=== PATIENT | female | born 1945 | race Caucasian/White ===

== ENCOUNTER 2019-08-15 08:55 | Emergency (ER) | payer MEDICARE, MEDICAID ==
[~2019-08-15] VITALS: Ht 172.7 cm; Wt 100.0 kg
[~2019-08-15 08:55] MED LIST: ALBU8.5H8 IH; ARIP10TA17 PO; ASPI-611 PO; BUPR300T6 PO; CHOL100034 PO; DOCU100C40 PO; ESTR1TAB28 PO; EXEN5PEN2 SQ; HYDR-3972 PO; LISI40TA4 PO; MORP60TA77 PO; NATURAL CALM PO; OMEP-50 PO; OSC500T PO; SIMV80TA89 PO; TORS20TA3 PO
[2019-08-15] MEDS ORDERED: normal saline 1000ML IV soln IV ONE (09:15)
[2019-08-15 09:40] LABS: BASOPHILS # (AUTO) 0.1 X10'3 (0-0.2); BASOPHILS % (AUTO) 0.5 % (0-1); EOSINOPHILS % (AUTO) 0.1 % (0-6); HEMATOCRIT 43.7 % (35.0-45.0); HEMOGLOBIN 15.2 g/dl (12.0-16.0); LYMPHOCYTES # (AUTO) 1.3 X10'3 (1.1-4.8); LYMPHOCYTES % (AUTO) 12.1 % (21-51); MEAN CORPUSCULAR HEMOGLOBIN 34.2 PG (27.0-31.0); MEAN CORPUSCULAR HGB CONC 34.8 g/dL (33.0-36.5); MEAN CORPUSCULAR VOLUME 98.2 FL (78-98); MEAN PLATELET VOLUME 9.2 FL (7.4-10.4); MONOCYTES # (AUTO) 1.2 X10'3 (0-0.9); MONOCYTES % (AUTO) 11.4 % (2-12); NEUTROPHILS # (AUTO) 7.9 X10'3 (1.8-7.7); NEUTROPHILS % (AUTO) 75.9 % (42-75); PLATELET COUNT 206 X10'3 (140-440); RED BLOOD COUNT 4.45 X10'6 (4.20-5.60); RED CELL DISTRIBUTION WIDTH 12.8 % (11.5-14.5); WHITE BLOOD COUNT 10.4 X10'3 (4.5-11.0)
[2019-08-15 10:01] LABS: ALANINE AMINOTRANSFERASE 16 U/L (12-78); ALBUMIN 3.2 G/DL (3.4-5.0); ALBUMIN/GLOBULIN RATIO 0.7 (1.1-1.5); ALKALINE PHOSPHATASE 100 IU/L (46-116); ANION GAP 11 (8-16); ASPARTATE AMINO TRANSFERASE 23 U/L (10-37); BILIRUBIN,TOTAL 0.9 MG/DL (0.1-1.0); BLOOD UREA NITROGEN 30 MG/DL (7-18); BUN/CREATININE RATIO 19.6 (6.6-38.0); CALCIUM 9.5 MG/DL (8.5-10.1); CHLORIDE 97 MMOL/L (99-107); CREATININE 1.53 MG/DL (0.40-0.90); GLUCOSE 294 MG/DL (70-104); MAGNESIUM 2.1 MG/DL (1.5-2.4); POTASSIUM 3.8 MMOL/L (3.5-5.1); SODIUM 136 MMOL/L (135-145); TOTAL CARBON DIOXIDE 28.1 MMOL/L (24-32); TOTAL PROTEIN 7.9 G/DL (6.4-8.2); eGFR 33 ML/MIN
[2019-08-15] MEDS ORDERED: DOXYCYCLINE 100MG CAPSULE PO STA (10:06)
[2019-08-15] MEDS ORDERED: DOXY100C2 PO (10:08)
[2019-08-15 11:09] VITALS: BP 110/63
== END 2019-08-15 11:25 | disposition home or self-care (01) ==
LOC: ER 08:56
DX: L03.116 Cellulitis of left lower limb (principal); I10 Essential (primary) hypertension; J45.909 Unspecified asthma, uncomplicated; E11.9 Type 2 diabetes mellitus without complications; G89.29 Other chronic pain; Z88.1 Allergy status to other antibiotic agents; Z88.0 Allergy status to penicillin; Z79.899 Other long term (current) drug therapy; Z79.82 Long term (current) use of aspirin; Z90.710 Acquired absence of both cervix and uterus; Z98.890 Other specified postprocedural states
CPT/HCPCS: 36415; 80053; 83605; 83735; 84145; 85025; 87040; 93005; 99284; J7030

== ENCOUNTER 2019-08-17 08:27 | Inpatient (IN) | payer MEDICARE, MEDICAID ==
[~2019-08-17] VITALS: Ht 172.7 cm; Wt 100.0 kg
[~2019-08-17 08:27] MED LIST changes: +DOXY100C2 PO
[2019-08-17 10:02] LABS: BASOPHILS % (AUTO) 0.3 % (0-1); EOSINOPHILS % (AUTO) 0.1 % (0-6); HEMATOCRIT 45.9 % (35.0-45.0); HEMOGLOBIN 15.9 g/dl (12.0-16.0); LYMPHOCYTES # (AUTO) 0.8 X10'3 (1.1-4.8); LYMPHOCYTES % (AUTO) 7.1 % (21-51); MEAN CORPUSCULAR HEMOGLOBIN 33.7 PG (27.0-31.0); MEAN CORPUSCULAR HGB CONC 34.6 g/dL (33.0-36.5); MEAN CORPUSCULAR VOLUME 97.5 FL (78-98); MEAN PLATELET VOLUME 8.7 FL (7.4-10.4); MONOCYTES # (AUTO) 1.2 X10'3 (0-0.9); MONOCYTES % (AUTO) 11.4 % (2-12); NEUTROPHILS # (AUTO) 8.9 X10'3 (1.8-7.7); NEUTROPHILS % (AUTO) 81.1 % (42-75); PLATELET COUNT 220 X10'3 (140-440); RED BLOOD COUNT 4.71 X10'6 (4.20-5.60); RED CELL DISTRIBUTION WIDTH 12.8 % (11.5-14.5); WHITE BLOOD COUNT 10.9 X10'3 (4.5-11.0)
[2019-08-17 10:17] LABS: ALANINE AMINOTRANSFERASE 22 U/L (12-78); ALBUMIN 2.9 G/DL (3.4-5.0); ALBUMIN/GLOBULIN RATIO 0.6 (1.1-1.5); ALKALINE PHOSPHATASE 121 IU/L (46-116); ANION GAP 12 (8-16); ASPARTATE AMINO TRANSFERASE 29 U/L (10-37); BILIRUBIN,TOTAL 0.8 MG/DL (0.1-1.0); BLOOD UREA NITROGEN 32 MG/DL (7-18); BUN/CREATININE RATIO 21.2 (6.6-38.0); CALCIUM 9.4 MG/DL (8.5-10.1); CHLORIDE 95 MMOL/L (99-107); CREATININE 1.51 MG/DL (0.40-0.90); GLUCOSE 303 MG/DL (70-104); POTASSIUM 3.3 MMOL/L (3.5-5.1); SODIUM 134 MMOL/L (135-145); TOTAL CARBON DIOXIDE 27.4 MMOL/L (24-32); TOTAL PROTEIN 8.1 G/DL (6.4-8.2); eGFR 34 ML/MIN
--- NOTE | 2019-08-17 10:53 | NUR ---
DIFFICULT IV START, 2 FAILED ATTEMPTS, DELAY IN IV ABX. PICC RN PAGED BUT UNAVAILABLE. [employer]OC[employer]ATE [employer] TO ATTEMPT. PROVIDER AWARE.
--- NOTE | 2019-08-17 11:49 | NUR ---
CVOR NURSE ATTEMPTED EJ WITHOUT SUCCESS. PICC RN AVAILABLE NOW AND PLACED MIDLINE IV
--- NOTE | 2019-08-17 11:56 | NUR ---
WAITING PHARMACY TO DOSE VANCO
[2019-08-17] MEDS ORDERED: LISI1TAB28 PO (11:59)
[2019-08-17] MEDS ORDERED: ROSU40TA22 PO (11:59)
[2019-08-17] MEDS ORDERED: MULT1TAB74 PO (11:59)
[2019-08-17] MEDS ORDERED: CHOL100046 PO (12:12)
[2019-08-17] MEDS ORDERED: IMIQ1CRE TP (12:18)
[2019-08-17] MEDS ORDERED: DOXY-224 PO (12:18)
[2019-08-17] MEDS: morphine 2 MG/ML inj. syringe IV PRN ×2 (12:31→19:23)
--- NOTE | 2019-08-17 12:44 | NUR ---
TELEPHONE CALL WITH DR REED AT THIS TIME REGARDING VANCOMYCIN ADMINISTRATION, PER DR BRIANNA BALLARD TO ADMINISTER VANCOMYCIN AT AT SLOW RATE, SPOKE WITH PHARMACIST RAUL WHO WILL ENTER DOSE. Addendum: 08/17/19 at 1246 by KRIS GAGAN GORDILLO MADE AWARE.
[2019-08-17] MEDS ORDERED: magnesium 2GM in 50ml NS 50 ML IV PRN (12:45)
[2019-08-17] MEDS ORDERED: potassium CL 10mEq/100ml bag 100 ML IV PRN ×2 (12:45)
[2019-08-17] MEDS ORDERED: magnesium hydroxide 30ml (MOM) UD suspension PO PRN (12:45)
[2019-08-17] MEDS ORDERED: potassium Cl 20 mEq SR tablet PO PRN (12:45)
[2019-08-17] MEDS ORDERED: magnesium Cl slow-release 64mg tablet PO PRN (12:45)
[2019-08-17] MEDS ORDERED: acetaminophen 325mg tablet PO PRN ×2 (12:45)
[2019-08-17] MEDS ORDERED: mag hydrox/Alum hydrox/simeth 30ml oral suspension PO PRN (12:45)
[2019-08-17] MEDS ORDERED: metoclopramide 5 mg/ml inj IV PRN (12:45)
[2019-08-17] MEDS ORDERED: bisacodyl 10mg suppository rectal RC PRN (12:45)
[2019-08-17] MEDS: levoFLOXACIN-Levaquin 500mg/D5 100 ML IV SCH (12:45)
[2019-08-17] MEDS ORDERED: diphenhydrAMINE 25mg capsule PO PRN (12:45)
[2019-08-17] MEDS ORDERED: ondansetron/PF 4mg/2ml inj IV PRN (12:45)
[2019-08-17] MEDS ORDERED: magnesium 4gm in 100ml NS 100 ML IV PRN (12:45)
[2019-08-17] MEDS ORDERED: diphenhydrAMINE 50 mg/ml inj IV PRN (12:45)
[2019-08-17 13:44] LABS: PHOSPHORUS 2.6 MG/DL (2.3-4.5)
--- NOTE | 2019-08-17 13:46 | NUR ---
Received report from GAGAN Eduardo in ED. Patient to go to room 348B.
[2019-08-17] MEDS: ringers solution, lacted 1,000 ML IV SCH (14:15)
[2019-08-17 14:20] VITALS: BP 124/68
[2019-08-17] MEDS ORDERED: dextrose ORAL solution 15 GM/59 ML bottle PO PRN ×2 (16:10)
[2019-08-17] MEDS ORDERED: MESSAGE TO PHARMACY PO ONE (16:10)
[2019-08-17] MEDS ORDERED: HYDROcodone/acetaminophen 10/325mg tab PO PRN (16:10)
[2019-08-17] MEDS ORDERED: glucagon, human recombinant 1mg kit SUBCUT PRN (16:10)
[2019-08-17] MEDS ORDERED: dextrose 50%-water 50ml dispensing syringe IV PRN ×2 (16:10)
[2019-08-17] MEDS: potassium Cl 20 mEq SR tablet PO PRN ×2 (16:47→20:55)
[2019-08-17] MEDS: EXENATIDE 5 MCG SQ SCH (17:52)
[2019-08-17 19:00] VITALS: BP 128/67
--- NOTE | 2019-08-17 19:00 | NUR ---
pt has "spinal cord stimulator" (from right ear to upper right chest); states it was placed a week ago on Thursday & its to be changed q2 weeks; states it hasn't helped yet; pt states she was told it can be effective in one to 4 weeks, but sometimes it doesn't help at all... Addendum: 08/18/19 at 0210 by Tatyana Anna RN Amended: Links added.
--- NOTE | 2019-08-17 19:00 | NUR ---
pt HR at 123; Dr Vincent informed & also informed to HR recorded when in ER; will continue to monitor Addendum: 08/18/19 at 0210 by Tatyana Anna RN Amended: Links added.
--- NOTE | 2019-08-17 19:26 | NUR ---
Problems reprioritized. Patient report given, questions answered & plan of care reviewed with Saloni Rn.
[2019-08-17] MEDS: nystatin 15 GM powder TP SCH (20:51)
[2019-08-17] MEDS ORDERED: temazepam 15mg capsule PO PRN (21:00)
--- NOTE | 2019-08-17 21:30 | NUR ---
bg 168. pt wants to re check later before starting insulin protocal. Addendum: 08/17/19 at 2131 by Harshal Morales RN Amended: Links added.
[2019-08-18] VITALS: BP 130/62
[2019-08-18] MEDS: HYDROcodone/acetaminophen 5mg/325mg tablet PO PRN ×5 (00:20→17:24)
[2019-08-18] MEDS: ringers solution, lacted 1,000 ML IV SCH ×4 (00:22→22:52)
[2019-08-18] MEDS: potassium Cl 20 mEq SR tablet PO PRN (00:25)
[2019-08-18 07:00] VITALS: BP 124/60
[2019-08-18] MEDS: EXENATIDE 5 MCG SQ SCH ×2 (07:30→17:29)
[2019-08-18] MEDS ORDERED: TORSEMIDE 20 MG PO SCH (08:00)
[2019-08-18] MEDS: K and/or MAG REPLACEMENT MC SCH (08:00)
[2019-08-18] MEDS: estradiol 1mg tablet PO SCH (08:12)
[2019-08-18] MEDS: enoxaparin 40mg/0.4ml syringe SQ SCH (08:12)
[2019-08-18] MEDS: docusate sod 100mg capsule PO SCH (08:13)
[2019-08-18] MEDS: ARIPIPRAZOLE 10 MG TABLET PO SCH (08:13)
[2019-08-18] MEDS: buPROPion SR 150mg tablet PO SCH ×2 (08:13→20:20)
[2019-08-18] MEDS: HYDROchlorothiazide 12.5mg capsule PO SCH (08:13)
[2019-08-18] MEDS: atorvastatin 20mg tablet PO SCH (08:14)
[2019-08-18] MEDS: pantoprazole 40mg Tablet.DR PO SCH (08:14)
[2019-08-18] MEDS: aspirin 81mg tablet.DR PO SCH (08:14)
[2019-08-18] MEDS: furosemide 40mg tablet PO SCH (08:14)
[2019-08-18] MEDS: lisinopril 20mg tablet PO SCH (08:15)
[2019-08-18] MEDS: levoFLOXACIN-Levaquin 500mg/D5 100 ML IV SCH (08:15)
[2019-08-18] MEDS: nystatin 15 GM powder TP SCH ×3 (08:16→20:20)
[2019-08-18] MEDS: insulin Lispro (HumaLOG) vial - multi-dose SQ SCH ×4 (08:37→21:38)
[2019-08-18 11:20] LABS: BASOPHILS # (AUTO) 0.1 X10'3 (0-0.2); BASOPHILS % (AUTO) 1.3 % (0-1); EOSINOPHILS # (AUTO) 0.1 X10'3 (0-0.9); EOSINOPHILS % (AUTO) 0.5 % (0-6); HEMATOCRIT 38.4 % (35.0-45.0); HEMOGLOBIN 13.3 g/dl (12.0-16.0); LYMPHOCYTES # (AUTO) 0.7 X10'3 (1.1-4.8); LYMPHOCYTES % (AUTO) 6.8 % (21-51); MEAN CORPUSCULAR HEMOGLOBIN 33.2 PG (27.0-31.0); MEAN CORPUSCULAR HGB CONC 34.6 g/dL (33.0-36.5); MEAN CORPUSCULAR VOLUME 95.7 FL (78-98); MEAN PLATELET VOLUME 8.3 FL (7.4-10.4); MONOCYTES # (AUTO) 0.8 X10'3 (0-0.9); MONOCYTES % (AUTO) 7.5 % (2-12); NEUTROPHILS % (AUTO) 83.9 % (42-75); PLATELET COUNT 210 X10'3 (140-440); RED BLOOD COUNT 4.01 X10'6 (4.20-5.60); RED CELL DISTRIBUTION WIDTH 12.9 % (11.5-14.5); WHITE BLOOD COUNT 10.7 X10'3 (4.5-11.0)
[2019-08-18 11:29] VITALS: BP 120/66
[2019-08-18 11:35] LABS: ALANINE AMINOTRANSFERASE 23 U/L (12-78); ALBUMIN 2.1 G/DL (3.4-5.0); ALBUMIN/GLOBULIN RATIO 0.5 (1.1-1.5); ALKALINE PHOSPHATASE 120 IU/L (46-116); ANION GAP 7 (8-16); ASPARTATE AMINO TRANSFERASE 42 U/L (10-37); BILIRUBIN,TOTAL 0.5 MG/DL (0.1-1.0); BLOOD UREA NITROGEN 23 MG/DL (7-18); BUN/CREATININE RATIO 17.8 (6.6-38.0); CALCIUM 9.1 MG/DL (8.5-10.1); CHLORIDE 99 MMOL/L (99-107); CHOL/HDL RATIO 1.9 (0.00-4.99); CHOLESTEROL 124 MG/DL (0-200); CREATININE 1.29 MG/DL (0.40-0.90); GLUCOSE 256 MG/DL (70-104); HDL CHOLESTEROL 67 MG/DL (35-60); LDL CHOLESTEROL 41 MG/DL (50-100); MAGNESIUM 1.8 MG/DL (1.5-2.4); PHOSPHORUS 1.8 MG/DL (2.3-4.5); POTASSIUM 3.8 MMOL/L (3.5-5.1); SODIUM 135 MMOL/L (135-145); TOTAL CARBON DIOXIDE 28.9 MMOL/L (24-32); TOTAL PROTEIN 6.7 G/DL (6.4-8.2); TRIGLYCERIDES 87 MG/DL (20-135); eGFR 40 ML/MIN
--- NOTE | 2019-08-18 16:04 | NUR ---
Student documentation: I have reviewed all interventions, assessments performed and documented by Emile VANESSA
[2019-08-18 18:00] VITALS: BP 100/64
--- NOTE | 2019-08-18 18:33 | NUR ---
Patient in room [facility]. I have received report from Radha FARAH and had the opportunity to ask questions and assume patient care. Patient is in bed resting.
--- NOTE | 2019-08-18 18:35 | NUR ---
Problems reprioritized. Patient report given, questions answered & plan of care reviewed with PRUDENCE RN.
[2019-08-18 18:51] LABS: HEMOGLOBIN A1C 7.9 % (4.5-6.2)
[2019-08-18] MEDS: lactobacillus rhamnosus 10,000 MMU CELLS/CAPSULE PO SCH (20:21)
[2019-08-18] MEDS: HYDROcodone/acetaminophen 10/325mg tab PO PRN (20:31)
[2019-08-19] VITALS: BP 118/61
[2019-08-19] MEDS: HYDROcodone/acetaminophen 10/325mg tab PO PRN ×5 (02:29→22:55)
[2019-08-19 05:18] LABS: BASOPHILS % (AUTO) 0.4 % (0-1); EOSINOPHILS # (AUTO) 0.1 X10'3 (0-0.9); EOSINOPHILS % (AUTO) 1.1 % (0-6); HEMATOCRIT 34.6 % (35.0-45.0); HEMOGLOBIN 12.2 g/dl (12.0-16.0); LYMPHOCYTES % (AUTO) 10.7 % (21-51); MEAN CORPUSCULAR HGB CONC 35.4 g/dL (33.0-36.5); MEAN CORPUSCULAR VOLUME 96.2 FL (78-98); MEAN PLATELET VOLUME 8.2 FL (7.4-10.4); MONOCYTES % (AUTO) 11.4 % (2-12); NEUTROPHILS # (AUTO) 6.8 X10'3 (1.8-7.7); NEUTROPHILS % (AUTO) 76.4 % (42-75); PLATELET COUNT 212 X10'3 (140-440); RED CELL DISTRIBUTION WIDTH 12.8 % (11.5-14.5); WHITE BLOOD COUNT 8.9 X10'3 (4.5-11.0)
[2019-08-19 05:33] LABS: ALANINE AMINOTRANSFERASE 23 U/L (12-78); ALBUMIN 1.9 G/DL (3.4-5.0); ALBUMIN/GLOBULIN RATIO 0.5 (1.1-1.5); ALKALINE PHOSPHATASE 112 IU/L (46-116); ANION GAP 6 (8-16); ASPARTATE AMINO TRANSFERASE 46 U/L (10-37); BILIRUBIN,TOTAL 0.5 MG/DL (0.1-1.0); BLOOD UREA NITROGEN 24 MG/DL (7-18); BUN/CREATININE RATIO 18.9 (6.6-38.0); CALCIUM 9.1 MG/DL (8.5-10.1); CHLORIDE 101 MMOL/L (99-107); CREATININE 1.27 MG/DL (0.40-0.90); GLUCOSE 180 MG/DL (70-104); MAGNESIUM 1.8 MG/DL (1.5-2.4); PHOSPHORUS 2.8 MG/DL (2.3-4.5); POTASSIUM 3.4 MMOL/L (3.5-5.1); SODIUM 136 MMOL/L (135-145); TOTAL CARBON DIOXIDE 28.9 MMOL/L (24-32); eGFR 41 ML/MIN
--- NOTE | 2019-08-19 06:18 | NUR ---
Problems reprioritized. Patient report given, questions answered & plan of care reviewed with Marcy FARAH.
--- NOTE | 2019-08-19 06:21 | NUR ---
Patient in room [facility]. I have received report from Betzy FARAH and had the opportunity to ask questions and assume patient care.
[2019-08-19] MEDS: EXENATIDE 5 MCG SQ SCH ×2 (07:30→19:27)
[2019-08-19] MEDS: lactobacillus rhamnosus 10,000 MMU CELLS/CAPSULE PO SCH ×2 (07:45→19:27)
[2019-08-19] MEDS: atorvastatin 20mg tablet PO SCH (07:46)
[2019-08-19] MEDS: pantoprazole 40mg Tablet.DR PO SCH (07:46)
[2019-08-19] MEDS: potassium Cl 20 mEq SR tablet PO PRN ×3 (07:46→15:58)
[2019-08-19] MEDS: aspirin 81mg tablet.DR PO SCH (07:47)
[2019-08-19] MEDS: lisinopril 20mg tablet PO SCH (07:47)
[2019-08-19] MEDS: buPROPion SR 150mg tablet PO SCH ×2 (07:48→19:27)
[2019-08-19] MEDS: docusate sod 100mg capsule PO SCH (07:48)
[2019-08-19] MEDS: HYDROchlorothiazide 12.5mg capsule PO SCH (07:48)
[2019-08-19] MEDS: ARIPIPRAZOLE 10 MG TABLET PO SCH (07:49)
[2019-08-19] MEDS: estradiol 1mg tablet PO SCH (07:49)
[2019-08-19] MEDS: furosemide 40mg tablet PO SCH (07:49)
[2019-08-19] MEDS: levoFLOXACIN-Levaquin 500mg/D5 100 ML IV SCH (07:52)
[2019-08-19] MEDS: nystatin 15 GM powder TP SCH ×3 (07:54→21:12)
[2019-08-19] MEDS: enoxaparin 40mg/0.4ml syringe SQ SCH (07:55)
[2019-08-19 08:00] VITALS: BP 114/57
[2019-08-19] MEDS: K and/or MAG REPLACEMENT MC SCH (08:00)
[2019-08-19] MEDS: insulin Lispro (HumaLOG) vial - multi-dose SQ SCH ×2 (08:47→12:55)
[2019-08-19] MEDS: ringers solution, lacted 1,000 ML IV SCH ×2 (10:47→22:43)
[2019-08-19 11:21] VITALS: BP 110/65
--- NOTE | 2019-08-19 18:10 | NUR ---
Patient in room [facility]. I have received report from Jacinda FARAH and had the opportunity to ask questions and assume patient care.
--- NOTE | 2019-08-19 18:38 | NUR ---
Patient in room [facility]. I have received report from Arturo FARAH and had the opportunity to ask questions and assume patient care. Addendum: 08/19/19 at 1840 by Marcy Sweeney RN Problems reprioritized. Patient report given, questions answered & plan of care reviewed with Arturo FARAH.
[2019-08-19 20:00] VITALS: BP 103/51
[2019-08-20] VITALS: BP 122/66
[2019-08-20 05:42] LABS: ALANINE AMINOTRANSFERASE 27 U/L (12-78); ALBUMIN 1.9 G/DL (3.4-5.0); ALBUMIN/GLOBULIN RATIO 0.4 (1.1-1.5); ALKALINE PHOSPHATASE 118 IU/L (46-116); ANION GAP 10 (8-16); ASPARTATE AMINO TRANSFERASE 51 U/L (10-37); BILIRUBIN,TOTAL 0.3 MG/DL (0.1-1.0); BLOOD UREA NITROGEN 24 MG/DL (7-18); BUN/CREATININE RATIO 16.9 (6.6-38.0); CALCIUM 9.4 MG/DL (8.5-10.1); CHLORIDE 102 MMOL/L (99-107); CREATININE 1.42 MG/DL (0.40-0.90); GLUCOSE 164 MG/DL (70-104); POTASSIUM 3.9 MMOL/L (3.5-5.1); SODIUM 140 MMOL/L (135-145); TOTAL CARBON DIOXIDE 28.2 MMOL/L (24-32); TOTAL PROTEIN 6.3 G/DL (6.4-8.2); eGFR 36 ML/MIN
[2019-08-20 06:03] LABS: HEMOGLOBIN 12.5 g/dl (12.0-16.0); MEAN CORPUSCULAR HEMOGLOBIN 32.6 PG (27.0-31.0); MEAN CORPUSCULAR HGB CONC 33.9 g/dL (33.0-36.5); MEAN CORPUSCULAR VOLUME 96.1 FL (78-98); MEAN PLATELET VOLUME 7.7 FL (7.4-10.4); PLATELET COUNT 244 X10'3 (140-440); RED BLOOD COUNT 3.85 X10'6 (4.20-5.60); RED CELL DISTRIBUTION WIDTH 12.6 % (11.5-14.5); WHITE BLOOD COUNT 7.9 X10'3 (4.5-11.0)
--- NOTE | 2019-08-20 06:29 | NUR ---
Problems reprioritized. Patient report given, questions answered & plan of care reviewed with Sherry FARAH.
--- NOTE | 2019-08-20 06:43 | NUR ---
Patient in room [facility]. I have received report from Arturo FARAH and had the opportunity to ask questions and assume patient care.
[2019-08-20 07:06] LABS: TOTAL CELLS COUNTED 100
[2019-08-20 07:07] LABS: PLATELET ESTIMATE NORMAL
[2019-08-20 08:00] VITALS: BP 130/72
[2019-08-20] MEDS: K and/or MAG REPLACEMENT MC SCH (08:00)
[2019-08-20] MEDS: ringers solution, lacted 1,000 ML IV SCH ×2 (08:35→20:05)
[2019-08-20] MEDS: levoFLOXACIN-Levaquin 500mg/D5 100 ML IV SCH (08:38)
[2019-08-20] MEDS: EXENATIDE 5 MCG SQ SCH ×2 (08:39→17:55)
[2019-08-20] MEDS: ARIPIPRAZOLE 10 MG TABLET PO SCH (08:41)
[2019-08-20] MEDS: atorvastatin 20mg tablet PO SCH (08:42)
[2019-08-20] MEDS: buPROPion SR 150mg tablet PO SCH ×2 (08:42→21:23)
[2019-08-20] MEDS: docusate sod 100mg capsule PO SCH (08:42)
[2019-08-20] MEDS: aspirin 81mg tablet.DR PO SCH (08:42)
[2019-08-20] MEDS: lactobacillus rhamnosus 10,000 MMU CELLS/CAPSULE PO SCH ×2 (08:42→21:22)
[2019-08-20] MEDS: lisinopril 20mg tablet PO SCH (08:42)
[2019-08-20] MEDS: furosemide 40mg tablet PO SCH (08:43)
[2019-08-20] MEDS: HYDROchlorothiazide 12.5mg capsule PO SCH (08:43)
[2019-08-20] MEDS: pantoprazole 40mg Tablet.DR PO SCH (08:44)
[2019-08-20] MEDS: enoxaparin 40mg/0.4ml syringe SQ SCH (08:45)
[2019-08-20] MEDS: nystatin 15 GM powder TP SCH ×3 (08:45→21:23)
[2019-08-20] MEDS: estradiol 1mg tablet PO SCH (08:53)
[2019-08-20] MEDS: HYDROcodone/acetaminophen 10/325mg tab PO PRN ×3 (08:54→23:54)
[2019-08-20 11:00] VITALS: BP 131/69
--- NOTE | 2019-08-20 13:14 | NUR ---
Pt with A1c 7.9 and cellulitis seen at bedside. Pt reports she takes her DM medications per rx and checks per BG levels q morning. Per pt her BG has been in the 130s over the last month however previously was averaging 120s. Per pt her A1c was 7.4 or 7.5 a couple of months ago. Pt provided with written and verbal protein and DM education with referral to outpatient DM class and RD contact information. Pt agrees to regular yogurt QD for increased protein, d/w dietary. [facility] 08/16 receiving routine Colace and PRN MoM last given yesterday, pt agrees to power pudding with next meal, d/w dietary. Will continue to follow. Addendum: 08/20/19 at [address] Amended: Links added.
--- NOTE | 2019-08-20 18:00 | NUR ---
Patient in room [facility]. I have received report from Sherry FARAH and had the opportunity to ask questions and assume patient care.
--- NOTE | 2019-08-20 18:00 | NUR ---
Problems reprioritized. Patient report given, questions answered & plan of care reviewed with Arturo FARAH.
[2019-08-20 20:00] VITALS: BP 127/66
[2019-08-21] VITALS: BP 145/63
[2019-08-21] MEDS: ringers solution, lacted 1,000 ML IV SCH (05:04)
[2019-08-21] MEDS: HYDROcodone/acetaminophen 10/325mg tab PO PRN ×4 (05:04→20:15)
[2019-08-21 05:35] LABS: ANION GAP 12 (8-16); BILIRUBIN,TOTAL 0.3 MG/DL (0.1-1.0); BLOOD UREA NITROGEN 23 MG/DL (7-18); CALCIUM 9.5 MG/DL (8.5-10.1); CHLORIDE 103 MMOL/L (99-107); CREATININE 1.35 MG/DL (0.40-0.90); GLUCOSE 163 MG/DL (70-104); MAGNESIUM 2.1 MG/DL (1.5-2.4); PHOSPHORUS 3.6 MG/DL (2.3-4.5); POTASSIUM 3.8 MMOL/L (3.5-5.1); SODIUM 141 MMOL/L (135-145); TOTAL CARBON DIOXIDE 26.4 MMOL/L (24-32); eGFR 38 ML/MIN
[2019-08-21 05:36] LABS: ALANINE AMINOTRANSFERASE 29 U/L (12-78); ALBUMIN 2.1 G/DL (3.4-5.0); ALBUMIN/GLOBULIN RATIO 0.5 (1.1-1.5); ALKALINE PHOSPHATASE 117 IU/L (46-116); ASPARTATE AMINO TRANSFERASE 54 U/L (10-37); TOTAL PROTEIN 6.7 G/DL (6.4-8.2)
[2019-08-21 06:20] LABS: BASOPHILS # (AUTO) 0.1 X10'3 (0-0.2); BASOPHILS % (AUTO) 1.3 % (0-1); EOSINOPHILS # (AUTO) 0.2 X10'3 (0-0.9); EOSINOPHILS % (AUTO) 3.1 % (0-6); HEMATOCRIT 38.6 % (35.0-45.0); HEMOGLOBIN 13.2 g/dl (12.0-16.0); LYMPHOCYTES # (AUTO) 1.5 X10'3 (1.1-4.8); LYMPHOCYTES % (AUTO) 19.8 % (21-51); MEAN CORPUSCULAR HEMOGLOBIN 32.8 PG (27.0-31.0); MEAN CORPUSCULAR HGB CONC 34.3 g/dL (33.0-36.5); MEAN CORPUSCULAR VOLUME 95.6 FL (78-98); MEAN PLATELET VOLUME 7.7 FL (7.4-10.4); MONOCYTES # (AUTO) 0.8 X10'3 (0-0.9); MONOCYTES % (AUTO) 10.7 % (2-12); NEUTROPHILS # (AUTO) 4.9 X10'3 (1.8-7.7); NEUTROPHILS % (AUTO) 65.1 % (42-75); PLATELET COUNT 298 X10'3 (140-440); RED BLOOD COUNT 4.04 X10'6 (4.20-5.60); RED CELL DISTRIBUTION WIDTH 12.7 % (11.5-14.5); WHITE BLOOD COUNT 7.6 X10'3 (4.5-11.0)
--- NOTE | 2019-08-21 06:23 | NUR ---
Problems reprioritized. Patient report given, questions answered & plan of care reviewed with Sherry FARAH.
--- NOTE | 2019-08-21 06:33 | NUR ---
Patient in room [facility]. I have received report from Arturo FARAH and had the opportunity to ask questions and assume patient care.
[2019-08-21] MEDS: enoxaparin 40mg/0.4ml syringe SQ SCH (07:41)
[2019-08-21] MEDS: EXENATIDE 5 MCG SQ SCH ×2 (07:41→18:05)
[2019-08-21] MEDS: ARIPIPRAZOLE 10 MG TABLET PO SCH (07:42)
[2019-08-21] MEDS: buPROPion SR 150mg tablet PO SCH ×2 (07:42→20:15)
[2019-08-21] MEDS: lisinopril 20mg tablet PO SCH (07:42)
[2019-08-21] MEDS: lactobacillus rhamnosus 10,000 MMU CELLS/CAPSULE PO SCH ×2 (07:42→20:15)
[2019-08-21] MEDS: docusate sod 100mg capsule PO SCH ×2 (07:42→20:16)
[2019-08-21] MEDS: nystatin 15 GM powder TP SCH ×3 (07:43→20:15)
[2019-08-21] MEDS: aspirin 81mg tablet.DR PO SCH (07:43)
[2019-08-21] MEDS: pantoprazole 40mg Tablet.DR PO SCH (07:43)
[2019-08-21] MEDS: atorvastatin 20mg tablet PO SCH (07:43)
[2019-08-21] MEDS: HYDROchlorothiazide 12.5mg capsule PO SCH (07:43)
[2019-08-21] MEDS: furosemide 40mg tablet PO SCH (07:43)
[2019-08-21 08:00] VITALS: BP 135/69
[2019-08-21] MEDS: K and/or MAG REPLACEMENT MC SCH (08:00)
[2019-08-21] MEDS: estradiol 1mg tablet PO SCH (10:04)
[2019-08-21] MEDS ORDERED: levoFLOXACIN 500mg tablet PO SCH (11:00)
[2019-08-21 11:35] VITALS: BP 131/68
--- NOTE | 2019-08-21 13:25 | NUR ---
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 PO 75-100% avg most meals w/ occasional drop to 25% and receiving yogurt daily as well for additional protein preference. [facility] 08/21. Will continue to monitor. for additional protein needs. Rec: 1. continue carb controlled diet; daily yogurt 2. routine bowel care 3. monitor for ONS needs if PO declines 4. wt per rx Addendum: 08/21/19 at [address] Amended: Links added.
[2019-08-21 20:00] VITALS: BP 123/62
[2019-08-21] MEDS ORDERED: polyethylene glycol 3350 17gm powd pack PO SCH (21:00)
[2019-08-22] VITALS: BP 122/69
[2019-08-22] MEDS: HYDROcodone/acetaminophen 10/325mg tab PO PRN ×2 (00:57→06:29)
--- NOTE | 2019-08-22 01:38 | NUR ---
Stump sock and kerlix on the floor upon returning to the room while patient was on commode. No dressing change orders, replaced out dressing layers only, 4x4 and kerlix wrap and stump sock.
[2019-08-22 05:18] LABS: BASOPHILS % (AUTO) 0.5 % (0-1); EOSINOPHILS # (AUTO) 0.2 X10'3 (0-0.9); EOSINOPHILS % (AUTO) 3.4 % (0-6); HEMATOCRIT 36.9 % (35.0-45.0); HEMOGLOBIN 12.8 g/dl (12.0-16.0); LYMPHOCYTES # (AUTO) 1.4 X10'3 (1.1-4.8); LYMPHOCYTES % (AUTO) 21.3 % (21-51); MEAN CORPUSCULAR HEMOGLOBIN 32.7 PG (27.0-31.0); MEAN CORPUSCULAR HGB CONC 34.7 g/dL (33.0-36.5); MEAN CORPUSCULAR VOLUME 94.5 FL (78-98); MEAN PLATELET VOLUME 7.4 FL (7.4-10.4); MONOCYTES # (AUTO) 0.7 X10'3 (0-0.9); MONOCYTES % (AUTO) 11.6 % (2-12); NEUTROPHILS % (AUTO) 63.2 % (42-75); PLATELET COUNT 295 X10'3 (140-440); RED BLOOD COUNT 3.91 X10'6 (4.20-5.60); RED CELL DISTRIBUTION WIDTH 12.3 % (11.5-14.5); WHITE BLOOD COUNT 6.4 X10'3 (4.5-11.0)
[2019-08-22 05:34] LABS: ALANINE AMINOTRANSFERASE 27 U/L (12-78); ALBUMIN/GLOBULIN RATIO 0.4 (1.1-1.5); ALKALINE PHOSPHATASE 109 IU/L (46-116); ANION GAP 10 (8-16); ASPARTATE AMINO TRANSFERASE 50 U/L (10-37); BILIRUBIN,TOTAL 0.4 MG/DL (0.1-1.0); BLOOD UREA NITROGEN 22 MG/DL (7-18); BUN/CREATININE RATIO 15.6 (6.6-38.0); CALCIUM 8.9 MG/DL (8.5-10.1); CHLORIDE 101 MMOL/L (99-107); CREATININE 1.41 MG/DL (0.40-0.90); GLUCOSE 144 MG/DL (70-104); PHOSPHORUS 3.7 MG/DL (2.3-4.5); SODIUM 142 MMOL/L (135-145); TOTAL CARBON DIOXIDE 31.1 MMOL/L (24-32); TOTAL PROTEIN 6.6 G/DL (6.4-8.2); eGFR 36 ML/MIN
[2019-08-22 05:36] LABS: POTASSIUM 2.9 MMOL/L (3.5-5.1)
[2019-08-22] MEDS ORDERED: potassium Cl 20 mEq SR tablet PO PRN (05:55)
[2019-08-22] MEDS ORDERED: potassium CL 10mEq/100ml bag 100 ML IV PRN (05:55)
[2019-08-22] MEDS ORDERED: magnesium Cl slow-release 64mg tablet PO PRN (05:55)
[2019-08-22] MEDS ORDERED: magnesium 2GM in 50ml NS 50 ML IV PRN (05:55)
[2019-08-22] MEDS ORDERED: magnesium 4gm in 100ml NS 100 ML IV PRN (05:55)
[2019-08-22] MEDS: potassium Cl 20 mEq SR tablet PO PRN ×3 (06:30→14:21)
--- NOTE | 2019-08-22 06:38 | NUR ---
Problems reprioritized. Patient report given, questions answered & plan of care reviewed with GAGAN Bundy.
--- NOTE | 2019-08-22 06:47 | NUR ---
Patient in room [facility]. I have received report from Madelyn Robins RN and had the opportunity to ask questions and assume patient care.
[2019-08-22 07:06] VITALS: BP 123/62
[2019-08-22] MEDS: EXENATIDE 5 MCG SQ SCH (07:38)
[2019-08-22] MEDS: lactobacillus rhamnosus 10,000 MMU CELLS/CAPSULE PO SCH (07:40)
[2019-08-22] MEDS: aspirin 81mg tablet.DR PO SCH (07:40)
[2019-08-22] MEDS: pantoprazole 40mg Tablet.DR PO SCH (07:40)
[2019-08-22] MEDS: furosemide 40mg tablet PO SCH (07:40)
[2019-08-22] MEDS: HYDROchlorothiazide 12.5mg capsule PO SCH (07:41)
[2019-08-22] MEDS: docusate sod 100mg capsule PO SCH (07:41)
[2019-08-22] MEDS: lisinopril 20mg tablet PO SCH (07:42)
[2019-08-22] MEDS: buPROPion SR 150mg tablet PO SCH (07:42)
[2019-08-22] MEDS: ARIPIPRAZOLE 10 MG TABLET PO SCH (07:42)
[2019-08-22] MEDS: estradiol 1mg tablet PO SCH (07:43)
[2019-08-22] MEDS: atorvastatin 20mg tablet PO SCH (07:43)
[2019-08-22] MEDS: enoxaparin 40mg/0.4ml syringe SQ SCH (07:44)
[2019-08-22] MEDS: nystatin 15 GM powder TP SCH ×2 (07:44→13:27)
[2019-08-22] MEDS: K and/or MAG REPLACEMENT MC SCH (07:52)
[2019-08-22] MEDS ORDERED: gadobutrol 10mmol/10ml inj. IV ONE (09:37)
[2019-08-22] MEDS ORDERED: levoFLOXACIN 250mg tablet PO SCH (11:00)
[2019-08-22 11:20] VITALS: BP 124/72
[2019-08-22] MEDS ORDERED: LEVO250T58 PO (12:18)
[2019-08-22] MEDS ORDERED: POTA20TA19 PO (12:18)
--- NOTE | 2019-08-22 14:04 | NUR ---
Spoke with Nursing regarding wound care for the stump. I had asked nursing to call Dr. Devi to get his ok for discharge and wound care to the stump. Nursing states that Dr. Devi was contacted and have wound care change the dressing. The dressing placed in the OR was a wet to moist dressing with gauze. Patient is being discharged now. I spoke with Marcy regarding wound care instructions of wet to moist with saline and gauze dressing.
--- NOTE | 2019-08-22 15:45 | NUR ---
Patient D/C'd home on stable condition by DR Dill. Discharge and medication instructions given to patient and her daughter. IV removed; appointment for follow up with wound clinic scheduled. Pt left the hospital at 1515 via private vehicle accompanied by daughter.
== END 2019-08-22 15:17 | disposition home health service (06) | DRG 464 ==
LOC: ER 08:28 → ED HOLD 13:05 → EDBEDREQ 13:30 → SUR 3N 14:05
PROVIDERS: ADMIT Family Medicine; ATTEND Family Medicine
PROC: 0JBP0ZZ Excision of Left Lower Leg Subcutaneous Tissue and Fascia, Open Approach (ICD-10-PCS; principal; 2019-08-17)
PROC: 0Y9B0ZZ Drainage of Left Lower Extremity, Open Approach (ICD-10-PCS; 2019-08-17)
DX: T87.44 Infection of amputation stump, left lower extremity (principal); L03.116 Cellulitis of left lower limb; M86.9 Osteomyelitis, unspecified; L02.818 Cutaneous abscess of other sites; L02.419 Cutaneous abscess of limb, unspecified; E11.65 Type 2 diabetes mellitus with hyperglycemia; I12.9 Hypertensive chronic kidney disease with stage 1 through stage 4 chronic kidney disease, or unspecified chronic kidney disease; N18.9 Chronic kidney disease, unspecified; E11.21 Type 2 diabetes mellitus with diabetic nephropathy; B99.8 Other infectious disease; E11.22 Type 2 diabetes mellitus with diabetic chronic kidney disease; E11.610 Type 2 diabetes mellitus with diabetic neuropathic arthropathy; E11.69 Type 2 diabetes mellitus with other specified complication; E78.5 Hyperlipidemia, unspecified; G89.29 Other chronic pain; E87.6 Hypokalemia; M54.9 Dorsalgia, unspecified; F32.9 Major depressive disorder, single episode, unspecified; F41.1 Generalized anxiety disorder; M41.9 Scoliosis, unspecified; Y83.8 Other surgical procedures as the cause of abnormal reaction of the patient, or of later complication, without mention of misadventure at the time of the procedure; Y83.5 Amputation of limb(s) as the cause of abnormal reaction of the patient, or of later complication, without mention of misadventure at the time of the procedure; Z90.710 Acquired absence of both cervix and uterus; Z89.512 Acquired absence of left leg below knee
CPT/HCPCS: 36415; 71045; 73560; 73720; 80053; 80061; 82948; 83036; 83605; 83735; 84100; 84145; 84443; 85025; 87040; 87070; 87075; 87077; 87081; 87186; 93005; 96365; 97110; 97112; 97116; 97162; 97530; 99285; A9585; G0378; J1650; J1815; J1956; J2270; J7120

== ENCOUNTER 2019-08-30 09:50 | Day surgery (SDC) | payer MEDICARE, MEDICAID ==
[~2019-08-30 09:50] MED LIST changes: -ALBU8.5H8 IH; -CHOL100034 PO; +CHOL100046 PO; -DOXY100C2 PO; +IMIQ1CRE TP; +LEVO250T58 PO; +LISI1TAB28 PO; -LISI40TA4 PO; -MORP60TA77 PO; +MULT1TAB74 PO; -NATURAL CALM PO; +POTA20TA19 PO; +ROSU40TA22 PO; -SIMV80TA89 PO
[2019-08-30] MEDS ORDERED: LIDOcaine 2% 5ml jelly ONE (10:45)
== END 2019-08-30 11:30 | disposition home or self-care (01) ==
LOC: WOUND CARE 09:50
PROVIDERS: ATTEND Surgery
DX: T87.89 Other complications of amputation stump (principal); E11.622 Type 2 diabetes mellitus with other skin ulcer; L89.893 Pressure ulcer of other site, stage 3; L97.822 Non-pressure chronic ulcer of other part of left lower leg with fat layer exposed; E11.65 Type 2 diabetes mellitus with hyperglycemia; E11.22 Type 2 diabetes mellitus with diabetic chronic kidney disease; I12.9 Hypertensive chronic kidney disease with stage 1 through stage 4 chronic kidney disease, or unspecified chronic kidney disease; N18.9 Chronic kidney disease, unspecified; E11.610 Type 2 diabetes mellitus with diabetic neuropathic arthropathy; E11.21 Type 2 diabetes mellitus with diabetic nephropathy; E11.69 Type 2 diabetes mellitus with other specified complication; M86.9 Osteomyelitis, unspecified; E78.5 Hyperlipidemia, unspecified; G89.29 Other chronic pain; J45.909 Unspecified asthma, uncomplicated; M19.90 Unspecified osteoarthritis, unspecified site; F32.9 Major depressive disorder, single episode, unspecified; F41.1 Generalized anxiety disorder; Z79.82 Long term (current) use of aspirin; Z79.899 Other long term (current) drug therapy; Z90.710 Acquired absence of both cervix and uterus; Z98.890 Other specified postprocedural states; Y83.5 Amputation of limb(s) as the cause of abnormal reaction of the patient, or of later complication, without mention of misadventure at the time of the procedure
CPT/HCPCS: 36416; 82948; 97597; A4663; A6021; A6154; A6213; A6446

== ENCOUNTER 2019-09-09 10:32 | Day surgery (SDC) | payer MEDICARE, MEDICAID ==
[2019-09-09] MEDS ORDERED: LIDOcaine 2% 5ml jelly ONE (11:15)
== END 2019-09-09 12:20 | disposition home or self-care (01) ==
LOC: WOUND CARE 10:32
PROVIDERS: ATTEND Surgery
DX: T87.89 Other complications of amputation stump (principal); E11.622 Type 2 diabetes mellitus with other skin ulcer; L89.893 Pressure ulcer of other site, stage 3; L97.822 Non-pressure chronic ulcer of other part of left lower leg with fat layer exposed; E11.65 Type 2 diabetes mellitus with hyperglycemia; E11.22 Type 2 diabetes mellitus with diabetic chronic kidney disease; I12.9 Hypertensive chronic kidney disease with stage 1 through stage 4 chronic kidney disease, or unspecified chronic kidney disease; N18.9 Chronic kidney disease, unspecified; E11.610 Type 2 diabetes mellitus with diabetic neuropathic arthropathy; E11.21 Type 2 diabetes mellitus with diabetic nephropathy; E11.69 Type 2 diabetes mellitus with other specified complication; M86.9 Osteomyelitis, unspecified; E78.5 Hyperlipidemia, unspecified; G89.29 Other chronic pain; J45.909 Unspecified asthma, uncomplicated; M19.90 Unspecified osteoarthritis, unspecified site; F32.9 Major depressive disorder, single episode, unspecified; F41.1 Generalized anxiety disorder; Z79.82 Long term (current) use of aspirin; Z79.899 Other long term (current) drug therapy; Z90.710 Acquired absence of both cervix and uterus; Z98.890 Other specified postprocedural states; Y83.5 Amputation of limb(s) as the cause of abnormal reaction of the patient, or of later complication, without mention of misadventure at the time of the procedure
CPT/HCPCS: 36416; 82948; A4663; A6021; A6154; A6446

== ENCOUNTER 2019-09-16 10:30 | Day surgery (SDC) | payer MEDICARE, MEDICAID | END 2019-09-16 12:26 | disposition home or self-care (01) | LOC: WOUND CARE 10:30 | PROVIDERS: ATTEND Surgery | DX: T87.89 Other complications of amputation stump (principal); E11.622 Type 2 diabetes mellitus with other skin ulcer; L89.893 Pressure ulcer of other site, stage 3; L97.822 Non-pressure chronic ulcer of other part of left lower leg with fat layer exposed; E11.65 Type 2 diabetes mellitus with hyperglycemia; E11.22 Type 2 diabetes mellitus with diabetic chronic kidney disease; I12.9 Hypertensive chronic kidney disease with stage 1 through stage 4 chronic kidney disease, or unspecified chronic kidney disease; N18.9 Chronic kidney disease, unspecified; E11.610 Type 2 diabetes mellitus with diabetic neuropathic arthropathy; E11.21 Type 2 diabetes mellitus with diabetic nephropathy; E11.69 Type 2 diabetes mellitus with other specified complication; M86.9 Osteomyelitis, unspecified; E78.5 Hyperlipidemia, unspecified; G89.29 Other chronic pain; J45.909 Unspecified asthma, uncomplicated; M19.90 Unspecified osteoarthritis, unspecified site; F32.9 Major depressive disorder, single episode, unspecified; F41.1 Generalized anxiety disorder; Z79.82 Long term (current) use of aspirin; Z79.899 Other long term (current) drug therapy; Z90.710 Acquired absence of both cervix and uterus; Z98.890 Other specified postprocedural states; Y83.5 Amputation of limb(s) as the cause of abnormal reaction of the patient, or of later complication, without mention of misadventure at the time of the procedure | CPT/HCPCS: 36416; 82948; 97597; A4663; A6021; A6154; A6212; A6446 ==

== ENCOUNTER 2019-10-03 10:05 | Day surgery (SDC) | payer MEDICARE, MEDICAID ==
[~2019-10-03 10:05] MED LIST changes: -POTA20TA19 PO
[2019-10-03] MEDS ORDERED: LIDOcaine 2% 5ml jelly ONE (10:18)
== END 2019-10-03 11:15 | disposition home or self-care (01) ==
LOC: WOUND CARE 10:05
PROVIDERS: ATTEND Surgery
DX: T87.89 Other complications of amputation stump (principal); E11.622 Type 2 diabetes mellitus with other skin ulcer; L89.893 Pressure ulcer of other site, stage 3; L97.822 Non-pressure chronic ulcer of other part of left lower leg with fat layer exposed; E11.65 Type 2 diabetes mellitus with hyperglycemia; E11.22 Type 2 diabetes mellitus with diabetic chronic kidney disease; I12.9 Hypertensive chronic kidney disease with stage 1 through stage 4 chronic kidney disease, or unspecified chronic kidney disease; N18.9 Chronic kidney disease, unspecified; E11.610 Type 2 diabetes mellitus with diabetic neuropathic arthropathy; E11.21 Type 2 diabetes mellitus with diabetic nephropathy; E11.69 Type 2 diabetes mellitus with other specified complication; M86.9 Osteomyelitis, unspecified; E78.5 Hyperlipidemia, unspecified; G89.29 Other chronic pain; J45.909 Unspecified asthma, uncomplicated; M19.90 Unspecified osteoarthritis, unspecified site; E78.00 Pure hypercholesterolemia, unspecified; F32.9 Major depressive disorder, single episode, unspecified; F41.1 Generalized anxiety disorder; Z79.82 Long term (current) use of aspirin; Z79.899 Other long term (current) drug therapy; Z90.710 Acquired absence of both cervix and uterus; Z98.890 Other specified postprocedural states; Y83.5 Amputation of limb(s) as the cause of abnormal reaction of the patient, or of later complication, without mention of misadventure at the time of the procedure
CPT/HCPCS: 11042; 36416; 82948; A6209; A4663; A6021; A6154; A6446

== ENCOUNTER 2019-10-14 10:25 | Day surgery (SDC) | payer MEDICARE, MEDICAID ==
[2019-10-14] MEDS ORDERED: LIDOcaine 2% 5ml jelly ONE (11:18)
== END 2019-10-14 11:45 | disposition home or self-care (01) ==
LOC: WOUND CARE 10:25
PROVIDERS: ATTEND Surgery
DX: T87.89 Other complications of amputation stump (principal); E11.622 Type 2 diabetes mellitus with other skin ulcer; L89.893 Pressure ulcer of other site, stage 3; L98.492 Non-pressure chronic ulcer of skin of other sites with fat layer exposed; E11.22 Type 2 diabetes mellitus with diabetic chronic kidney disease; I12.9 Hypertensive chronic kidney disease with stage 1 through stage 4 chronic kidney disease, or unspecified chronic kidney disease; N18.9 Chronic kidney disease, unspecified; E11.69 Type 2 diabetes mellitus with other specified complication; M86.9 Osteomyelitis, unspecified; E11.610 Type 2 diabetes mellitus with diabetic neuropathic arthropathy; E11.21 Type 2 diabetes mellitus with diabetic nephropathy; E11.65 Type 2 diabetes mellitus with hyperglycemia; E78.5 Hyperlipidemia, unspecified; M19.90 Unspecified osteoarthritis, unspecified site; E78.00 Pure hypercholesterolemia, unspecified; G89.29 Other chronic pain; J45.909 Unspecified asthma, uncomplicated; F41.1 Generalized anxiety disorder; F32.9 Major depressive disorder, single episode, unspecified; Z98.890 Other specified postprocedural states; Z79.82 Long term (current) use of aspirin; Z79.899 Other long term (current) drug therapy; Z90.710 Acquired absence of both cervix and uterus; Z89.512 Acquired absence of left leg below knee; Z87.891 Personal history of nicotine dependence; Y83.5 Amputation of limb(s) as the cause of abnormal reaction of the patient, or of later complication, without mention of misadventure at the time of the procedure
CPT/HCPCS: 11042; 36416; 82948; A6209; A4663; A6154; A6446

== ENCOUNTER 2019-10-21 11:06 | Day surgery (SDC) | payer MEDICARE, MEDICAID ==
[2019-10-21] MEDS ORDERED: LIDOcaine 2% 5ml jelly ONE (11:21)
== END 2019-10-21 12:10 | disposition home or self-care (01) ==
LOC: WOUND CARE 11:06
PROVIDERS: ATTEND Surgery
DX: T87.89 Other complications of amputation stump (principal); E11.622 Type 2 diabetes mellitus with other skin ulcer; L89.893 Pressure ulcer of other site, stage 3; L98.492 Non-pressure chronic ulcer of skin of other sites with fat layer exposed; E11.22 Type 2 diabetes mellitus with diabetic chronic kidney disease; I12.9 Hypertensive chronic kidney disease with stage 1 through stage 4 chronic kidney disease, or unspecified chronic kidney disease; N18.9 Chronic kidney disease, unspecified; E11.69 Type 2 diabetes mellitus with other specified complication; M86.9 Osteomyelitis, unspecified; E11.610 Type 2 diabetes mellitus with diabetic neuropathic arthropathy; E11.21 Type 2 diabetes mellitus with diabetic nephropathy; E11.65 Type 2 diabetes mellitus with hyperglycemia; E78.5 Hyperlipidemia, unspecified; M19.90 Unspecified osteoarthritis, unspecified site; E78.00 Pure hypercholesterolemia, unspecified; G89.29 Other chronic pain; J45.909 Unspecified asthma, uncomplicated; F41.1 Generalized anxiety disorder; F32.9 Major depressive disorder, single episode, unspecified; Z98.890 Other specified postprocedural states; Z79.82 Long term (current) use of aspirin; Z79.899 Other long term (current) drug therapy; Z90.710 Acquired absence of both cervix and uterus; Z89.512 Acquired absence of left leg below knee; Z87.891 Personal history of nicotine dependence; Y83.5 Amputation of limb(s) as the cause of abnormal reaction of the patient, or of later complication, without mention of misadventure at the time of the procedure
CPT/HCPCS: 36416; 82948; 97597; A4663; A6021; A6154; A6212; A6446

== ENCOUNTER 2019-10-28 10:45 | Outpatient (CLI) | payer MEDICARE, MEDICAID ==
[2019-10-28] MEDS ORDERED: LIDOcaine 2% 5ml jelly ONE (11:15)
[2019-10-28] MEDS ORDERED: Silvasorb gel 45gm tube TP ONE (11:28)
== END 2019-10-28 12:30 | disposition home or self-care (01) ==
LOC: WOUND CARE 10:45
PROVIDERS: ATTEND Surgery
DX: T87.89 Other complications of amputation stump (principal); E11.622 Type 2 diabetes mellitus with other skin ulcer; L89.893 Pressure ulcer of other site, stage 3; L98.492 Non-pressure chronic ulcer of skin of other sites with fat layer exposed; E11.22 Type 2 diabetes mellitus with diabetic chronic kidney disease; I12.9 Hypertensive chronic kidney disease with stage 1 through stage 4 chronic kidney disease, or unspecified chronic kidney disease; N18.9 Chronic kidney disease, unspecified; E11.69 Type 2 diabetes mellitus with other specified complication; M86.9 Osteomyelitis, unspecified; E11.610 Type 2 diabetes mellitus with diabetic neuropathic arthropathy; E11.21 Type 2 diabetes mellitus with diabetic nephropathy; E11.65 Type 2 diabetes mellitus with hyperglycemia; E78.5 Hyperlipidemia, unspecified; M19.90 Unspecified osteoarthritis, unspecified site; E78.00 Pure hypercholesterolemia, unspecified; G89.29 Other chronic pain; J45.909 Unspecified asthma, uncomplicated; F41.1 Generalized anxiety disorder; F32.9 Major depressive disorder, single episode, unspecified; Z98.890 Other specified postprocedural states; Z79.82 Long term (current) use of aspirin; Z79.899 Other long term (current) drug therapy; Z90.710 Acquired absence of both cervix and uterus; Z89.512 Acquired absence of left leg below knee; Z87.891 Personal history of nicotine dependence; Y83.5 Amputation of limb(s) as the cause of abnormal reaction of the patient, or of later complication, without mention of misadventure at the time of the procedure
CPT/HCPCS: 36416; 82948; G0463; A4663; A6446

== ENCOUNTER 2019-11-04 10:20 | Outpatient (CLI) | payer MEDICARE, MEDICAID ==
[2019-11-04] MEDS ORDERED: Silvasorb gel 45gm tube TP ONE (11:04)
== END 2019-11-04 11:36 | disposition home or self-care (01) ==
LOC: WOUND CARE 10:20 → EDSTATUS 10:30 → WOUND CARE 11:36
PROVIDERS: ATTEND Surgery
DX: T87.89 Other complications of amputation stump (principal); E11.622 Type 2 diabetes mellitus with other skin ulcer; L89.893 Pressure ulcer of other site, stage 3; L98.492 Non-pressure chronic ulcer of skin of other sites with fat layer exposed; E11.22 Type 2 diabetes mellitus with diabetic chronic kidney disease; I12.9 Hypertensive chronic kidney disease with stage 1 through stage 4 chronic kidney disease, or unspecified chronic kidney disease; N18.9 Chronic kidney disease, unspecified; E11.610 Type 2 diabetes mellitus with diabetic neuropathic arthropathy; E11.21 Type 2 diabetes mellitus with diabetic nephropathy; E11.65 Type 2 diabetes mellitus with hyperglycemia; E78.5 Hyperlipidemia, unspecified; M19.90 Unspecified osteoarthritis, unspecified site; E78.00 Pure hypercholesterolemia, unspecified; G89.29 Other chronic pain; J45.909 Unspecified asthma, uncomplicated; F41.1 Generalized anxiety disorder; F32.9 Major depressive disorder, single episode, unspecified; Z98.890 Other specified postprocedural states; Z79.82 Long term (current) use of aspirin; Z79.899 Other long term (current) drug therapy; Z90.710 Acquired absence of both cervix and uterus; Z89.512 Acquired absence of left leg below knee; Z87.891 Personal history of nicotine dependence; Y83.5 Amputation of limb(s) as the cause of abnormal reaction of the patient, or of later complication, without mention of misadventure at the time of the procedure
CPT/HCPCS: 36416; G0463

== ENCOUNTER 2019-11-11 10:20 | Outpatient (CLI) | payer MEDICARE, MEDICAID | END 2019-11-11 11:25 | disposition home or self-care (01) | LOC: WOUND CARE 10:20 → EDSTATUS 10:30 → WOUND CARE 11:25 | PROVIDERS: ATTEND Surgery | DX: T87.89 Other complications of amputation stump (principal); E11.622 Type 2 diabetes mellitus with other skin ulcer; L89.893 Pressure ulcer of other site, stage 3; L98.492 Non-pressure chronic ulcer of skin of other sites with fat layer exposed; E11.22 Type 2 diabetes mellitus with diabetic chronic kidney disease; I12.9 Hypertensive chronic kidney disease with stage 1 through stage 4 chronic kidney disease, or unspecified chronic kidney disease; N18.9 Chronic kidney disease, unspecified; E11.610 Type 2 diabetes mellitus with diabetic neuropathic arthropathy; E11.21 Type 2 diabetes mellitus with diabetic nephropathy; E11.65 Type 2 diabetes mellitus with hyperglycemia; E78.5 Hyperlipidemia, unspecified; M19.90 Unspecified osteoarthritis, unspecified site; E78.00 Pure hypercholesterolemia, unspecified; G89.29 Other chronic pain; J45.909 Unspecified asthma, uncomplicated; F41.1 Generalized anxiety disorder; F32.9 Major depressive disorder, single episode, unspecified; Z98.890 Other specified postprocedural states; Z79.82 Long term (current) use of aspirin; Z79.899 Other long term (current) drug therapy; Z90.710 Acquired absence of both cervix and uterus; Z89.512 Acquired absence of left leg below knee; Z87.891 Personal history of nicotine dependence; Y83.5 Amputation of limb(s) as the cause of abnormal reaction of the patient, or of later complication, without mention of misadventure at the time of the procedure | CPT/HCPCS: 36416; 82948; G0463 ==

== ENCOUNTER 2019-11-25 10:05 | Outpatient (CLI) | payer MEDICARE, MEDICAID | END 2019-11-25 11:15 | disposition home or self-care (01) | LOC: WOUND CARE 10:05 → EDSTATUS 10:30 → WOUND CARE 11:15 | PROVIDERS: ATTEND Surgery | DX: T87.89 Other complications of amputation stump (principal); E11.622 Type 2 diabetes mellitus with other skin ulcer; L89.893 Pressure ulcer of other site, stage 3; L98.492 Non-pressure chronic ulcer of skin of other sites with fat layer exposed; E11.22 Type 2 diabetes mellitus with diabetic chronic kidney disease; I12.9 Hypertensive chronic kidney disease with stage 1 through stage 4 chronic kidney disease, or unspecified chronic kidney disease; N18.9 Chronic kidney disease, unspecified; E11.610 Type 2 diabetes mellitus with diabetic neuropathic arthropathy; E11.21 Type 2 diabetes mellitus with diabetic nephropathy; E11.65 Type 2 diabetes mellitus with hyperglycemia; E78.5 Hyperlipidemia, unspecified; M19.90 Unspecified osteoarthritis, unspecified site; E78.00 Pure hypercholesterolemia, unspecified; G89.29 Other chronic pain; J45.909 Unspecified asthma, uncomplicated; F41.1 Generalized anxiety disorder; F32.9 Major depressive disorder, single episode, unspecified; Z98.890 Other specified postprocedural states; Z79.82 Long term (current) use of aspirin; Z79.899 Other long term (current) drug therapy; Z90.710 Acquired absence of both cervix and uterus; Z89.512 Acquired absence of left leg below knee; Z87.891 Personal history of nicotine dependence; Y83.5 Amputation of limb(s) as the cause of abnormal reaction of the patient, or of later complication, without mention of misadventure at the time of the procedure | CPT/HCPCS: 36416; 82948; G0463 ==

== ENCOUNTER 2020-02-10 14:07 | Emergency (ER) | payer MEDICARE, MEDICAID ==
[~2020-02-10] VITALS: Ht 167.6 cm; Wt 81.8 kg
[~2020-02-10 14:07] MED LIST changes: -ARIP10TA17 PO; -BUPR300T6 PO; -CHOL100046 PO; +DIPH-629 PO; -DOCU100C40 PO; -ESTR1TAB28 PO; -EXEN5PEN2 SQ; -IMIQ1CRE TP; -LISI1TAB28 PO; -MULT1TAB74 PO; +MYC15CR TP; -OMEP-50 PO; -OSC500T PO; +PSYL1PAC PO; -TORS20TA3 PO
[2020-02-10 15:05] LABS: BASOPHILS # (AUTO) 0.1 X10'3 (0-0.2); BASOPHILS % (AUTO) 0.5 % (0-1); EOSINOPHILS # (AUTO) 0.1 X10'3 (0-0.9); EOSINOPHILS % (AUTO) 0.8 % (0-6); HEMATOCRIT 37.1 % (35.0-45.0); LYMPHOCYTES # (AUTO) 2.2 X10'3 (1.1-4.8); LYMPHOCYTES % (AUTO) 18.6 % (21-51); MEAN CORPUSCULAR HEMOGLOBIN 31.7 PG (27.0-31.0); MEAN CORPUSCULAR HGB CONC 32.4 g/dL (33.0-36.5); MEAN CORPUSCULAR VOLUME 97.9 FL (78-98); MEAN PLATELET VOLUME 7.8 FL (7.4-10.4); MONOCYTES # (AUTO) 1.1 X10'3 (0-0.9); MONOCYTES % (AUTO) 9.3 % (2-12); NEUTROPHILS # (AUTO) 8.5 X10'3 (1.8-7.7); NEUTROPHILS % (AUTO) 70.8 % (42-75); PLATELET COUNT 307 X10'3 (140-440); RED BLOOD COUNT 3.79 X10'6 (4.20-5.60); RED CELL DISTRIBUTION WIDTH 14.5 % (11.5-14.5); WHITE BLOOD COUNT 12.1 X10'3 (4.5-11.0)
[2020-02-10 15:19] LABS: ALANINE AMINOTRANSFERASE 7 U/L (12-78); ALBUMIN 2.9 G/DL (3.4-5.0); ALBUMIN/GLOBULIN RATIO 0.7 (1.1-1.5); ALKALINE PHOSPHATASE 129 IU/L (46-116); ANION GAP 6 (8-16); ASPARTATE AMINO TRANSFERASE 18 U/L (10-37); BILIRUBIN,TOTAL 0.7 MG/DL (0.1-1.0); BLOOD UREA NITROGEN 25 MG/DL (7-18); BUN/CREATININE RATIO 19.7 (6.6-38.0); CALCIUM 8.9 MG/DL (8.5-10.1); CHLORIDE 104 MMOL/L (99-107); CREATININE 1.27 MG/DL (0.40-0.90); GLUCOSE 105 MG/DL (70-104); POTASSIUM 3.9 MMOL/L (3.5-5.1); SODIUM 136 MMOL/L (135-145); TOTAL PROTEIN 6.9 G/DL (6.4-8.2); eGFR 41 ML/MIN
--- NOTE | 2020-02-10 16:00 | NUR ---
Stool specimen obtained from depends. Pt had a small brown and reddish colored soft bm. Pt's inquinal folds and perianal/buttocks excoriated from frequent loose stools. Pt reports she cannot control her bowels. Pt is asking for pain medication for her back.
--- NOTE | 2020-02-10 16:15 | NUR ---
Lab rejected the c-diff toxin specimen, new specimen obtained and sent to the lab
[2020-02-10] MEDS ORDERED: nystatin/triamcinolone cream 15gm TP STA (16:27)
[2020-02-10] MEDS ORDERED: MYCOL30CR TP (16:52)
--- NOTE | 2020-02-10 17:05 | NUR ---
Upon cleansing the rectal area with moist wipe to apply the nystatin/triamcin. cream the patient was noted to have a large stool lodged in the rectum. Pt digitally disempacted, bright red blood streaks noted throughout the stool. Provider Natalie Verdugo PA-C notified of the digital disempaction.
[2020-02-10 17:28] VITALS: BP 105/66
[2020-02-11 08:48] LABS: C DIFF ANTIGEN NEGATIVE (NEGATIVE); C DIFF SPECIMEN=DIARRHEA? ACCEPTABLE; C DIFFICILE TOXINS A&B NEGATIVE (Neg)
== END 2020-02-10 17:33 | disposition home or self-care (01) ==
LOC: ER 14:07
DX: K62.5 Hemorrhage of anus and rectum (principal); R19.7 Diarrhea, unspecified; E78.00 Pure hypercholesterolemia, unspecified; I10 Essential (primary) hypertension; J45.909 Unspecified asthma, uncomplicated; E11.9 Type 2 diabetes mellitus without complications; G89.29 Other chronic pain; Z90.710 Acquired absence of both cervix and uterus; Z98.890 Other specified postprocedural states; Z59.0 Homelessness; Z89.512 Acquired absence of left leg below knee; Z88.1 Allergy status to other antibiotic agents; Z91.018 Allergy to other foods; Z88.8 Allergy status to other drugs, medicaments and biological substances; Z79.82 Long term (current) use of aspirin; Z79.899 Other long term (current) drug therapy
CPT/HCPCS: 36415; 80053; 85025; 87324; 87449; 99284; J7999